=== PATIENT | female | born 1975 ===

== ENCOUNTER 2017-10-05 06:17 | Emergency (ER) | payer OTHER ==
[~2017-10-05] VITALS: Ht 149.9 cm; Wt 60.8 kg
== END 2017-10-05 13:02 | disposition home or self-care (01) ==
LOC: ER 06:17
DX: N20.0 Calculus of kidney (principal); R10.32 Left lower quadrant pain

== ENCOUNTER 2018-08-27 14:12 | Emergency (ER) | payer OTHER ==
[~2018-08-27] VITALS: Ht 149.9 cm; Wt 59.9 kg
== END 2018-08-27 21:03 | disposition home or self-care (01) ==
LOC: ER 14:12
DX: N20.0 Calculus of kidney (principal)

== ENCOUNTER 2019-01-05 09:46 | Emergency (ER) | payer OTHER ==
[~2019-01-05] VITALS: Ht 149.9 cm; Wt 59.0 kg
== END 2019-01-05 14:46 | disposition home or self-care (01) ==
LOC: ER 09:46
DX: R10.31 Right lower quadrant pain (principal)